=== PATIENT | male | born 1960 | race Two or more races ===

== ENCOUNTER → 2020-04-24 | Outpatient (CLI) | payer OTHER ==
--- NOTE | 2020-04-24 13:25 | XR ---
EXAMINATION TYPE: XR shoulder complete RT DATE OF EXAM: 04/24/2020 COMPARISON: NONE HISTORY: Pain TECHNIQUE: Three views are submitted. FINDINGS: The osseous structures are intact. There is no acute fracture or dislocation. Severe arthropathy of the AC joint with hypertrophic spurring. Tiny punctate calcification along the inferior margin of the acromion. IMPRESSION: 1. Severe AC joint arthropathy correlate for rotator cuff disease. 2. 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
== END | disposition home or self-care (01) ==
LOC: RADXRMAIN 13:09
PROVIDERS: ATTEND Emergency Medicine
DX: M25.811 Other specified joint disorders, right shoulder (principal)